=== PATIENT | female | born 1985 | race Caucasian/White ===

== ENCOUNTER → 2016-12-22 | Outpatient (CLI) | payer OTHER, BC ==
[~2016-12-22] MED LIST: LORA10TA PO; PREN1TAB30 PO
[2016-12-22 09:39] LABS: AUTOMATED NEUTROPHIL # 2.7 TH/MM3 (1.8-7.7); BASOPHIL # 0.1 TH/MM3 (0-0.2); BASOPHIL % 1.3 % (0.0-2.0); EOSINOPHIL # 0.1 TH/MM3 (0-0.4); EOSINOPHIL % 1.9 % (0.0-4.0); HEMATOCRIT 34.6 % (35.0-46.0); HEMO FLAGS DIFF FINAL; LYMPH % 37.4 % (9.0-44.0); LYMPHOCYTE # 1.8 TH/MM3 (1.0-4.8); MEAN CELL VOLUME 87.2 FL (80.0-100.0); MEAN CORPUSCULAR HEMOGLOBIN 31.2 PG (27.0-34.0); MEAN CORPUSCULAR HGB CONC 35.7 % (32.0-36.0); MONO % 4.7 % (0.0-8.0); NEUT % 54.7 % (16.0-70.0); PLATELET COUNT 222 TH/MM3 (150-450); RED BLOOD COUNT 3.97 MIL/MM3 (4.00-5.30); RED CELL DISTRIBUTION WIDTH 12.9 % (11.6-17.2); WHITE BLOOD COUNT 4.9 TH/MM3 (4.0-11.0)
[2016-12-22 10:16] LABS: RUBELLA IGG ANTIBODY 72.6 IU/mL (10.0-500.0); RUBELLA STATUS IMMUNE (IMMUNE)
[2016-12-22 15:59] LABS: RAPID PLASMA REAGIN SCREEN NON-REACTIVE (NON-REACTVE)
[2016-12-24 16:39] LABS: CALCULATED AGE AT EDD 31 years (()); GA USED IN RISK ESTIMATE Scan estimate (()); MATERNAL RACE BLACK non-Black (()); MATERNAL WEIGHT (LBS) 162 lbs (())
== END ==
LOC: CLAB 09:07
PROVIDERS: ATTEND Obstetrics & Gynecology
DX: Z34.82 Encounter for supervision of other normal pregnancy, second trimester (principal); Z11.3 Encounter for screening for infections with a predominantly sexual mode of transmission
CPT/HCPCS: 36415; 81511; 85025; 86592; 86703; 86762; 86850; 86900; 86901; 87086; 87340

== ENCOUNTER → 2017-01-06 | Outpatient (CLI) | payer OTHER, BC | LOC: HPND 11:19 | PROVIDERS: ATTEND Obstetrics & Gynecology | DX: O35.1XX0 Maternal care for (suspected) chromosomal abnormality in fetus, not applicable or unspecified (principal); Z3A.00 Weeks of gestation of pregnancy not specified | CPT/HCPCS: 76811 ==

== ENCOUNTER → 2017-02-03 | Outpatient (CLI) | payer OTHER, BC | LOC: HPND 08:59 | PROVIDERS: ATTEND Obstetrics & Gynecology | DX: O28.0 Abnormal hematological finding on antenatal screening of mother (principal); Z3A.22 22 weeks gestation of pregnancy | CPT/HCPCS: 76816; 76825; 76827; 93325 ==

== ENCOUNTER → 2017-03-03 | Outpatient (CLI) | payer OTHER, BC | LOC: HPND 09:40 | PROVIDERS: ATTEND Obstetrics & Gynecology | DX: O28.0 Abnormal hematological finding on antenatal screening of mother (principal); Z3A.25 25 weeks gestation of pregnancy | CPT/HCPCS: 76816 ==

== ENCOUNTER → 2017-03-18 | Outpatient (CLI) | payer OTHER, BC ==
[2017-03-18 11:07] LABS: HEMATOCRIT 33.9 % (35.0-46.0); REVIEW FLAG FINAL
== END ==
LOC: CLAB 09:48
PROVIDERS: ATTEND Obstetrics & Gynecology
DX: Z34.82 Encounter for supervision of other normal pregnancy, second trimester (principal)
CPT/HCPCS: 36415; 82951; 85014; 85018

== ENCOUNTER 2017-06-11 19:44 | Inpatient (IN) | payer OTHER, BC ==
[~2017-06-11] VITALS: Ht 165.1 cm; Wt 92.0 kg
[2017-06-11] MEDS ORDERED: LACTATED RINGER'S 1000 ML INJ 1,000 ML IV PRN (20:50)
[2017-06-11] MEDS ORDERED: OXYTOCIN 30 UNITS-500ML PREMIX 500 ML IV SCH (21:00)
[2017-06-11] MEDS ORDERED: MINERAL OIL 10 ML VIAL TOPICAL PRN (21:00)
[2017-06-11] MEDS ORDERED: LIDOCAINE HCL 1% 50 ML VIAL INFIL PRN (21:00)
[2017-06-11] MEDS ORDERED: LIDOCAINE HCL 1% 50 ML VIAL I-DERMAL PRN (21:00)
[2017-06-11] MEDS ORDERED: OXYTOCIN 30 UNITS-500ML PREMIX 500 ML IV ONE (21:00)
[2017-06-11] MEDS ORDERED: CITRIC ACID-SODIUM CITRATE LIQ 30 ML UDC PO SCH (21:00)
[2017-06-11] MEDS ORDERED: SODIUM CHLORID 0.9% 500 ML INJ 500 ML IV PRN (21:00)
[2017-06-11] MEDS ORDERED: PENICILLIN G POTASSIUM INJ 5,000,000 UNITS in SODIUM CHLORIDE 0.9% INJ 100 ML IV ONE (21:00)
--- NOTE | 2017-06-11 21:07 | HHI.HP ---
HPI Chief Complaint induction 40 1/7 weeks and YISSEL 06/10 Date Seen: Jun 11, 2017 Time Seen: 20:45 Travel History International Travel<30 Days: No Contact w/Intl Traveler<30Days: No Known Affected Area: No History of Present Illness HPI patient for induction Weeks Gestation: 40 Para: 1 : 3 Last Menstrual Period: Jun 11, 2017 History Past Medical History Medical History: Denies Significant Hx Obstetric History Obstetric History x1 Past Surgical History Narrative Surgical D&C in 2016 and breast augment Family History Family History: Negative Social History Alcohol Use: No Tobacco Use: No Substance Abuse: No Allergies-Medications (Allergen,Severity, Reaction): Coded Allergies: Sulfa (Sulfonamide Antibiotics) (Unverified Allergy, Unknown, 04/29/17) UNKNOWN REACTION Home Meds Reported Medications Loratadine (Claritin 10 Mg Tab) 10 Mg Tab, 10 MG PO DAILY Y for SNEEZING, TAB 03/04/16 Vit W/ Ferrous Fumara ( Vitamin 27-0.8 mg) 1 Tab Tab, PO DAILY 03/04/16 Review of Systems Except as stated in HPI: all other systems reviewed are Neg Physical Exam Narrative GENERAL: Well-nourished, well-developed patient. SKIN: Warm and dry. HEAD: Normocephalic and atraumatic. EYES: No scleral icterus. No injection or drainage. ENT: No nasal drainage noted. Mucous membranes pink. Airway patent. NECK: Supple, trachea midline. No JVD. CARDIOVASCULAR: Regular rate and rhythm without murmurs, gallops, or rubs. RESPIRATORY: Breath sounds equal bilaterally. No accessory muscle use. BREASTS: Bilateral exam showed no masses , no retractions, no nipple discharge. ABDOMEN/GI: Abdomen soft, non-tender, bowel sounds present, no rebound, no guarding Gravid to [-] weeks size Fundal Height: [-] GENITOURINARY: External Genitalia: intact and normal in appearance BUS glands: [-] Cervix: [-] Dilatation: 2 cm Effacement: 80 Station: [-] Presentation: VTX Membranes: [intact Uterine Contractions: [-] FHT's: Category: 1 Baseline: [-] Reactive: [-] Variability: [-] Decels: [-] EXTREMITIES: No cyanosis or edema. BACK: Nontender without obvious deformity. No CVA tenderness. NEUROLOGICAL: Awake and alert. Motor and sensory grossly within normal limits. Five out of 5 muscle strength in all muscle groups. Normal speech. Caprini VTE Risk Assessment Caprini VTE Risk Assessment: No/Low Risk (score <= 1) Caprini Risk Assessment Model Point Value = 1 Point Value = 2 Point Value = 3 Point Value = 5 Age 41-60 Minor surgery BMI > 25 kg/m2 Swollen legs Varicose veins or History of unexplained or recurrent spontaneous Oral contraceptives or hormone replacement Sepsis (< 1 month) Serious lung disease, including pneumonia (< 1 month) Abnormal pulmonary function Acute myocardial infarction Congestive heart failure (< 1 month) History of inflammatory bowel disease Medical patient at bed rest Age 61-74 Arthroscopic surgery Major open surgery (> 45 min) Laparoscopic surgery (> 45 min) Malignancy Confined to bed (> 72 hours) Immobilizing plaster cast Central venous access Age >= 75 History of VTE Family history of VTE Factor V Leiden Prothrombin [id number] Lupus anticoagulant Anticardiolipin antibodies Elevated serum homocysteine Heparin-induced thrombocytopenia Other congenital or acquired thrombophilia Stroke (< 1 month) Elective arthroplasty Hip, pelvis, or leg fracture Acute spinal cord injury (< 1 month) Prophylaxis Regimen Total Risk Factor Score Risk Level Prophylaxis Regimen 0-1 Low Early ambulation 2 Moderate Order ONE of the following: *Sequential Compression Device (SCD) *Heparin 5000 units SQ BID 3-4 Higher Order ONE of the following medications: *Heparin 5000 units SQ TID *Enoxaparin/Lovenox 40 mg SQ daily (WT < 150 kg, CrCl > 30 mL/min) *Enoxaparin/Lovenox 30 mg SQ daily (WT < 150 kg, CrCl > 10-29 mL/min) *Enoxaparin/Lovenox 30 mg SQ BID (WT < 150 kg, CrCl > 30 mL/min) AND/OR *Sequential Compression Device (SCD) 5 or more Highest Order ONE of the following medications: *Heparin 5000 units SQ TID (Preferred with Epidurals) *Enoxaparin/Lovenox 40 mg SQ daily (WT < 150 kg, CrCl > 30 mL/min) *Enoxaparin/Lovenox 30 mg SQ daily (WT < 150 kg, CrCl > 10-29 mL/min) *Enoxaparin/Lovenox 30 mg SQ BID (WT < 150 kg, CrCl > 30 mL/min) AND *Sequential Compression Device (SCD) Data Data Vital Signs Reviewed: Yes Orders Orders Admit To Inpatient (06/11/17 ) Code Status (06/11/17 20:50) Vital Signs (Adult) .Per protocol (06/11/17 20:50) Heart (06/11/17 20:50) Amnioinfusion (06/11/17 20:50) Urinary Catheter Management .ONCE (06/11/17 20:50) Diet Liquid (06/12/17 Breakfast) Lactated Ringer's 1000 Ml Inj (Lr 1000 M (06/11/17 20:50) Lactated Ringer's 1000 Ml Inj (Lr 1000 M (06/11/17 20:50) Sodium Chlorid 0.9% 500 Ml Inj (Ns 500 M (06/11/17 21:00) Sodium Chlor 0.9% 1000 Ml Inj (Ns 1000 M (06/11/17 21:10) Lidocaine 1% Inj (50 Ml) (Xylocaine 1% I (06/11/17 21:00) Citric Acid-Sodium Citrate Liq (Bicitra (06/11/17 21:00) Fentanyl Inj (Fentanyl Inj) (06/11/17 21:00) Fentanyl Inj (Fentanyl Inj) (06/11/17 21:00) Penicillin G Potassium Inj (Pfizerpen-G (06/11/17 21:00) Penicillin G Potassium Inj (Pfizerpen-G (06/12/17 01:00) Complete Blood Count With Diff (06/11/17 20:50) Hold Clot (06/11/17 20:50) Abo/Rh Blood Type (06/11/17 20:50) Urinalysis - C+S If Indicated (06/11/17 20:50) Resp Oxygen Non Rebreathe Mask (06/11/17 ) ^ Epidural / Intrathecal Infus (06/11/17 20:50) Oxytocin 30 Units-500ml Premix (Pitocin (06/11/17 21:00) Lidocaine 1% Inj (50 Ml) (Xylocaine 1% I (06/11/17 21:00) Light Mineral Oil (Muri-Lube Oil) (06/11/17 21:00) Specimen To Be Collected PRN (06/11/17 20:50) ^ Non Stress Test (06/11/17 20:55) Response To Medication .Post New Med Administration, Reaction (06/11/17 20:55) ^ Discontinue Medication (06/11/17 20:55) Oxytocin 30 Units-500ml Premix (Pitocin (06/11/17 21:00) Group B Strep: Positive Assessment/Plan Problem List: (1) 40 weeks gestation of ICD Codes: Z3A.40 - 40 weeks gestation of Assessment and Plan induction Caleb Lopez MD Jun 11, 2017 21:07
[2017-06-11] MEDS ORDERED: SODIUM CHLOR 0.9% 1000 ML INJ 1,000 ML IV PRN (21:10)
[2017-06-11] MEDS: LACTATED RINGER'S 1000 ML INJ 1,000 ML IV SCH (21:31)
[2017-06-11 21:38] LABS: BACTERIA, URINE RARE /hpf; BLOOD, URINE NEG (NEG); COMMENT (UR) CULT NOT INDICATED; CULTURE IF INDICATED CULT NOT INDICATED; GLUCOSE,URINE NEG (NEG); KETONE, URINE NEG (NEG); MUCUS URINE FEW /lpf (OCC); NITRITE,URINE NEG (NEG); PH, URINE 6.5 (5.0-8.5); SQUAMOUS EPITHELIAL CELL URINE 1 /hpf (0-5); URINE COLOR LIGHT-YELLOW (YELLW/STRAW)
[2017-06-11 21:41] LABS: AUTOMATED NEUTROPHIL # 7.9 TH/MM3 (1.8-7.7); BASOPHIL # 0.1 TH/MM3 (0-0.2); BASOPHIL % 0.7 % (0.0-2.0); EOSINOPHIL # 0.2 TH/MM3 (0-0.4); EOSINOPHIL % 1.8 % (0.0-4.0); HEMATOCRIT 34.4 % (35.0-46.0); HEMO FLAGS DIFF FINAL; LYMPH % 21.7 % (9.0-44.0); LYMPHOCYTE # 2.4 TH/MM3 (1.0-4.8); MEAN CELL VOLUME 88.1 FL (80.0-100.0); MEAN CORPUSCULAR HEMOGLOBIN 29.2 PG (27.0-34.0); MEAN CORPUSCULAR HGB CONC 33.1 % (32.0-36.0); NEUT % 70.8 % (16.0-70.0); PLATELET COUNT 309 TH/MM3 (150-450); RED CELL DISTRIBUTION WIDTH 12.7 % (11.6-17.2); WHITE BLOOD COUNT 11.2 TH/MM3 (4.0-11.0)
[2017-06-11 23:15] VITALS: BP 120/74; PULSE 68; RESP 16; TEMP 97.6
[2017-06-12] VITALS (36 sets, daily range): BP systolic 81–141; BP diastolic 55–90; PULSE 58–84; RESP 16–18; TEMP 97.5–98.3
[2017-06-12] MEDS ORDERED: fentaNYL 2MCG-BUPIV 0.125% INJ 100 ML ONE (01:44)
[2017-06-12] MEDS: LACTATED RINGER'S 1000 ML INJ 1,000 ML IV SCH ×2 (01:55→05:38)
[2017-06-12] MEDS: PENICILLIN G POTASSIUM INJ 2,500,000 UNITS in SODIUM CHLORIDE 0.9% INJ 100 ML IV SCH ×2 (01:55→05:38)
[2017-06-12] MEDS ORDERED: ONDANSETRON HCL 4 MG/2 ML VIAL ONE (02:20)
[2017-06-12] MEDS ORDERED: ePHEDrine/NS 25 MG/5 ML SYR ONE (02:21)
[2017-06-12] MEDS ORDERED: DO NOT ADMINISTER ANTICOAGULANTS PRN (02:30)
[2017-06-12] MEDS ORDERED: ePHEDrine/NS 25 MG/5 ML SYR IV PUSH PRN (02:30)
[2017-06-12] MEDS ORDERED: fentaNYL 2MCG-BUPIV 0.125% 100 ML EPIDURAL SCH (02:30)
[2017-06-12] MEDS ORDERED: NO SYSTEM NARCOTICS PRN (02:30)
[2017-06-12] MEDS ORDERED: BENZOCAINE 20% TOPICAL SPRAY 60 ML CAN TOPICAL PRN (07:15)
[2017-06-12] MEDS ORDERED: WITCH HAZEL 50%/GLYCERIN 12.5% 40 PAD JAR TOPICAL PRN (07:15)
[2017-06-12] MEDS ORDERED: IBUPROFEN 600 MG TAB PO PRN (07:15)
[2017-06-12] MEDS ORDERED: ACETAMINOPHEN 325 MG TAB PO PRN (07:15)
[2017-06-12] MEDS ORDERED: DOCUSATE SODIUM 50 MG/SENNA 8.6 MG TAB PO PRN (07:15)
[2017-06-12] MEDS ORDERED: oxyCODONE/ACETAMINOPHEN 5 MG/325 MG TAB PO PRN ×2 (07:15)
[2017-06-12] MEDS ORDERED: ZOLPIDEM TARTRATE 5 MG TAB PO PRN (07:15)
[2017-06-12] MEDS ORDERED: ONDANSETRON ODT 4 MG TAB PO PRN (07:15)
[2017-06-12] MEDS ORDERED: SODIUM CHLORIDE 0.9% FLUSH 10 ML FLUSH IV FLUSH PRN (07:15)
[2017-06-12] MEDS ORDERED: OXYTOCIN 30 UNITS-500ML PREMIX 500 ML IV SCH (07:15)
[2017-06-12] MEDS ORDERED: ALUMINUM/MAGNESIUM/SIMETH 30 ML CUP PO PRN (07:15)
--- NOTE | 2017-06-12 07:23 | PD.OB.DELI ---
Weeks gestation: 40 Gest age assessed date: Jun 11, 2017 Gest age assessed time: 22:30 Pt started active labor?: Yes Active labor start date: Jun 12, 2017 Active labor start time: 00:01 Medical induction of labor?: No Artificial rupture of membrane: Yes Artificial ROM date: Jun 11, 2017 Artifical ROM time: 22:50 Anesthesia: Epidural Episiotomy: Right mediolateral Vaginal Delivery: Normal, Spontaneous Presentation: Occiput anterior Nuchal Cord: None Delayed cord clamping (45 sec): Yes : Male Delivery date: Jun 12, 2017 Delivery time: 06:46 One Minute : 8 Five Minute : 9 Weight: 8# 11oz Placenta: Spontaneous delivery, Intact, 3 vessel cord Laceration: Episiotomy, 2 deg Repair: Chromic running Estimated blood loss: 300 Caleb Lopez MD Jun 12, 2017 07:23
--- NOTE | 2017-06-12 07:25 | HHI.DCPOC ---
Discharge Care Plan Diagnosis: (1) Spontaneous vaginal delivery Report Symptoms to Your Doctor -Temperature above 100.5 degrees -Redness, of incision or excessive or foul smelling drainage -Unusual pain or calf pain -Increased vaginal bleeding -Painful or difficulty urinating -Feelings of extreme sadness or anxiety after 2 weeks Goals to Promote Your Health * To prevent worsening of your condition and complications * To maintain your health at the optimal level Directions to Meet Your Goals Take your medications as prescribed Follow your dietary instruction Follow activity as directed Ensure plenty of rest for recovery Drink fluids for hydration Keep your appointments as scheduled Take your immunizations and boosters as scheduled If your symptoms worsen call your PCP, if no PCP go to Urgent Care Center or Emergency Room Smoking is Dangerous to Your Health. Avoid second hand smoke Call the 24-hour crisis hotline for domestic abuse at Caleb Lopez MD Jun 12, 2017 07:25
[2017-06-12] MEDS ORDERED: SODIUM CHLORIDE 0.9% FLUSH 10 ML FLUSH IV FLUSH SCH (09:00)
[2017-06-12] MEDS ORDERED: DIPHTH/TETANUS/ACEL PERTUSSIS (BOOSTER) 0.5 ML VIAL/PFS IM ONE (16:00)
[2017-06-12] MEDS ORDERED: MEASLES, MUMPS, RUBELLA VACCINE 0.5 ML VIAL SQ ONE (16:00)
[2017-06-13 05:47] VITALS: BP 120/79; PULSE 70; RESP 20; TEMP 98.7
--- NOTE | 2017-06-13 07:58 | HHI.OB ---
Subjective Post Day: 1 Remarks doing well and ready for DC Objective Vitals/I&O Vital Signs Date Time Temp Pulse Resp B/P (MAP) Pulse Ox O2 Delivery O2 Flow Rate FiO2 06/13/17 05:47 98.7 70 20 120/79 06/12/17 20:00 98.3 06/12/17 20:00 70 18 120/79 (93) 06/12/17 11:15 98.0 65 16 118/64 (82) 06/12/17 08:41 18 06/12/17 08:36 84 117/68 (84) 06/12/17 08:19 65 115/64 (81) 06/12/17 08:15 18 06/12/17 08:01 67 111/62 (78) 06/12/17 08:00 97.5 18 Objective Remarks GENERAL: Well-nourished, well-developed patient. ABDOMEN/GI: Abdomen soft, non-tender. Fundus: Firm, non-tender at umbilicus. GENITOURINARY: Light to moderate bleeding. EXTREMITIES: No cyanosis or edema, non-tender, without signs of DVT. Medications and IVs Current Medications Medications (Trade) Dose Ordered Sig/Brittany Route Start Time Stop Time Status Last Admin Lactated Ringer's 1,000 ml @ 125 mls/hr Q8H IV 06/11/17 20:50 06/12/17 05:38 Lactated Ringer's 1,000 ml @ 3,000 mls/hr Q20M PRN IV 06/11/17 20:50 Sodium Chloride 500 ml @ 1,000 mls/hr ONCE PRN IV 06/11/17 21:00 07/01/17 20:59 Sodium Chloride 1,000 ml @ 100 mls/hr Q10H PRN IV 06/11/17 21:10 (Xylocaine 1% Inj (50 ml)) 0.1 ml UNSCH X1 PRN I-DERMAL 06/11/17 21:00 06/14/17 20:59 (Bicitra Liq) 30 ml SUSPENDER CUTTER PO 06/11/17 21:00 06/15/17 20:59 (fentaNYL INJ) 50 mcg Q1H PRN IV PUSH 06/11/17 21:00 (fentaNYL INJ) 100 mcg Q1H PRN IV PUSH 06/11/17 21:00 Penicillin G Potassium [id number] units/Sodium Chloride 100 ml @ 200 mls/hr Q4H IV 06/12/17 01:00 06/12/17 05:38 (Xylocaine 1% Inj (50 ml)) 10 ml UNSCH X1 PRN INFIL 06/11/17 21:00 06/13/17 20:59 (Muri-Lube Oil) 10 ml UNSCH PRN TOPICAL 06/11/17 21:00 Oxytocin 500 ml @ 0 mls/hr TITRATE IV 06/11/17 21:00 06/12/17 02:58 Fentanyl/ Bupivacaine HCl 100 ml @ 12 mls/hr TITRATE EPIDURAL 06/12/17 02:30 (NS Flush) 2 ml BID IV FLUSH 06/12/17 09:00 (NS Flush) 2 ml UNSCH PRN IV FLUSH 06/12/17 07:15 (Tylenol) 650 mg Q4H PRN PO 06/12/17 07:15 (Motrin) 600 mg Q6H PRN PO 06/12/17 07:15 06/13/17 05:52 (Percocet 5-325 Mg) 1 tab Q4H PRN PO 06/12/17 07:15 (Percocet 5-325 Mg) 2 tab Q4H PRN PO 06/12/17 07:15 (Americaine 20% Top Spr) 1 spray Q4H PRN TOPICAL 06/12/17 07:15 06/13/17 05:51 (Tucks Pads) 1 applic QID PRN TOPICAL 06/12/17 07:15 06/13/17 05:51 (Sophie-Colace) 2 tab Q12H PRN PO 06/12/17 07:15 06/13/17 05:51 (Ambien) 5 mg HS PRN PO 06/12/17 07:15 (Mag-Al Plus Susp Liq) 15 ml Q8H PRN PO 06/12/17 07:15 (Zofran Odt) 4 mg Q6H PRN PO 06/12/17 07:15 (Flu (Quadrivalent) Vaccine Inj) 0.5 ml ONCE ONCE IM 06/13/17 10:00 06/13/17 10:01 Assessment/Plan Problem List: (1) 40 weeks gestation of ICD Codes: Z3A.40 - 40 weeks gestation of (2) Spontaneous vaginal delivery ICD Codes: O80 - Encounter for full-term uncomplicated delivery Status: Acute Assessment and Plan doing well Caleb Lopez MD Jun 13, 2017 07:58
[2017-06-13] MEDS ORDERED: OXYC1TAB63 PO (08:01)
[2017-06-13 08:20] VITALS: BP 119/81; PULSE 61; RESP 17; TEMP 98.2
[2017-06-13] MEDS ORDERED: INFLUENZA VIRUS VACCINE (QUADRIVALENT) 0.5 ML SYR IM ONE (10:00)
== END 2017-06-13 15:23 | disposition home or self-care (01) | DRG 775 ==
LOC: H2EB 19:44 → H1EA 06-12 08:58
PROVIDERS: ADMIT Obstetrics & Gynecology; ATTEND Obstetrics & Gynecology
PROC: 10E0XZZ Delivery of Products of Conception, External Approach (ICD-10-PCS; principal; 2017-06-11)
PROC: 0KQM0ZZ Repair Perineum Muscle, Open Approach (ICD-10-PCS; 2017-06-11)
PROC: 10907ZC Drainage of Amniotic Fluid, Therapeutic from Products of Conception, Via Natural or Artificial Opening (ICD-10-PCS; 2017-06-11)
PROC: 0W8NXZZ Division of Female Perineum, External Approach (ICD-10-PCS; 2017-06-11)
DX: O70.1 Second degree perineal laceration during delivery (principal); O26.893 Other specified pregnancy related conditions, third trimester; Z23 Encounter for immunization; Z37.0 Single live birth; Z3A.40 40 weeks gestation of pregnancy
CPT/HCPCS: 59025; 81001; 85025; 85461; 86850; 86900; 86901; 90384; 90686; 90715; J2405; J2540; J2590; J2790; J7120; Q2038

== ENCOUNTER 2018-03-07 16:20 | Emergency (ER) | payer OTHER, BC ==
[~2018-03-07] VITALS: Ht 152.4 cm; Wt 70.0 kg
[~2018-03-07 16:20] MED LIST changes: +AK-T0.3S EACH EYE; -LORA10TA PO; +OXYC1TAB63 PO; -PREN1TAB30 PO
[2018-03-07 16:24] VITALS: BP 126/76; PULSE 83; RESP 18; TEMP 98.2; O2SAT 99
[2018-03-07] MEDS ORDERED: KETOROLAC TROMETHAMINE 30 MG/ML (IVP) VIAL IV PUSH ONE (16:45)
[2018-03-07] MEDS ORDERED: PROCHLORPERAZINE INJ 10 MG/2 ML VIAL IV PUSH ONE (16:45)
[2018-03-07] MEDS ORDERED: diphenhydrAMINE HCL 50 MG/ML VIAL IV PUSH ONE (16:45)
[2018-03-07] MEDS ORDERED: SODIUM CHLOR 0.9% 1000 ML INJ 1,000 ML IV ONE (16:45)
--- NOTE | 2018-03-07 17:14 | PD ---
HPI Chief Complaint: Headache Time Seen by Provider: 16:38 Travel History International Travel<30 days: No Contact w/Intl Traveler<30days: No Traveled to known affect area: No History of Present Illness HPI Patient is a 32 year old female who comes in complaining of severe headache. She says that for the past few weeks she has had on and off headaches that usually improved after sleeping and Ibuprofen. However, for the past two days she has had severe pain. She says it started last night and continued today. She has tried Ibuprofen, Zofran and Benadryl. She tried a Tramadol as well without relief. She reports vomiting once and is not sure if she vomited the medications or not. She says she has had chills at home, but does not think she has had a fever. She complains of neck stiffness, but says she often has pain to her neck. 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 She does not typically get headaches like this. She says a few days ago she stood up into the mantle and hit her head hard, but the headaches started prior to this. Severity is moderate. PFSH Past Medical History Cancer: No Cardiovascular Problems: No Diabetes: No Endocrine: No Gastrointestinal Disorders: Yes (IRRITABLE BOWEL) Genitourinary: No Hepatitis: No Hiatal Hernia: No Hypertension: No Immune Disorder: No Medical other: No Musculoskeletal: No Neurologic: No Psychiatric: No Reproductive: Yes (vaginal bleeding) Respiratory: No ?: Not LMP: 03/01/2018 : 1 Para: 0 Miscarriage: 0 : 0 Past Surgical History Abdominal Surgery: No AICD: No Body Medical Devices: saline breast implants Cardiac Surgery: No Ear Surgery: No Endocrine Surgery: No Eye Surgery: No Genitourinary Surgery: No Gynecologic Surgery: No Joint Replacement: No Neurologic Surgery: No Oral Surgery: Yes (TONSILLECTOMY) Pacemaker: No Thoracic Surgery: Yes (breast augmentation) Other Surgery: Yes Social History Alcohol Use: No Tobacco Use: No Substance Use: No Allergies-Medications (Allergen,Severity, Reaction): Coded Allergies: sulfamethoxazole (Verified Allergy, Severe, Hives, 06/11/17) trimethoprim (Verified Allergy, Severe, Hives, 06/11/17) Sulfa (Sulfonamide Antibiotics) (Unverified Allergy, Unknown, 04/29/17) UNKNOWN REACTION Reported Meds & Prescriptions Reported Meds & Active Scripts Active Tobramycin Opth Drops 0.3 % Soln 1 Drop EACH EYE Q4H Oxycodone-Acetaminophen 5-325 mg Tab 2 Tab PO Q4H PRN 7 Days Review of Systems Except as stated in HPI: all other systems reviewed are Neg Eyes: No: Blurred Vision HENT: Positive: Headaches, Neck Pain Cardiovascular: No: Chest Pain or Discomfort Respiratory: No: Shortness of Breath Gastrointestinal: Positive: Nausea, Vomiting, No: Abdominal Pain Musculoskeletal: No: Myalgias Skin: No Rash, No Change in Pigmentation Neurologic: No: Dizziness, Syncope Physical Exam Narrative GENERAL: Awake and alert, in no acute distress. SKIN: Focused skin assessment warm/dry. No wounds or signs of infection. HEAD: Atraumatic. Normocephalic. EYES: Pupils equal and round and reactive. No scleral icterus. EOMI. ENT: Mucous membranes pink and moist. NECK: Trachea midline. No JVD. Tender to palpation of the left trapezius muscle. No meningeal signs. CARDIOVASCULAR: Regular rate and rhythm. No murmur appreciated. RESPIRATORY: No accessory muscle use. Clear to auscultation. Breath sounds equal bilaterally. GASTROINTESTINAL: Abdomen soft, non-tender, nondistended. MUSCULOSKELETAL: No obvious deformities. No clubbing. No cyanosis. No edema. NEUROLOGICAL: Awake and alert. No obvious cranial nerve deficits. Motor grossly within normal limits. Normal speech. PSYCHIATRIC: Appropriate mood and affect; insight and judgment normal. Data Data Last Documented VS Vital Signs Date Time Temp Pulse Resp B/P (MAP) Pulse Ox O2 Delivery O2 Flow Rate FiO2 03/07/18 16:24 98.2 83 18 126/76 (93) 99 Orders Orders Iv Access Insert/Monitor (03/07/18 16:41) Complete Blood Count With Diff (03/07/18 16:41) Comprehensive Metabolic Panel (03/07/18 16:41) Act Partial Throm Time (Ptt) (03/07/18 16:41) Prothrombin Time / Inr (Pt) (03/07/18 16:41) Ct Brain W/O Iv Contrast(Rout) (03/07/18 ) Sodium Chlor 0.9% 1000 Ml Inj (Ns 1000 M (03/07/18 16:45) Prochlorperazine Inj (Compazine Inj) (03/07/18 16:45) Diphenhydramine Inj (Benadryl Inj) (03/07/18 16:45) Ketorolac Inj (Toradol Inj) (03/07/18 16:45) MDM Medical Decision Making Medical Screen Exam Complete: Yes Emergency Medical Condition: Yes Medical Record Reviewed: Yes Differential Diagnosis migraine vs tension headache vs dehydration vs ICH Narrative Course Patient is a 32 year old female who comes in complaining of severe headache. Exam shows tenderness to the trapezius muscle, no neurologic abnormalities. IV established, labs sent. Given IVF, Compazine, Benadryl, Toradol. Signed out to Dr. Gonzales to follow up labs and disposition the patient. Narda Chrsitine MD Mar 07, 2018 17:14
[2018-03-07 17:20] LABS: AUTOMATED NEUTROPHIL # 4.8 TH/MM3 (1.8-7.7); BASOPHIL % 0.6 % (0.0-2.0); EOSINOPHIL % 0.5 % (0.0-4.0); HEMATOCRIT 38.3 % (35.0-46.0); HEMOGLOBIN 12.9 GM/DL (11.6-15.3); LYMPHOCYTE # 0.6 TH/MM3 (1.0-4.8); MEAN CELL VOLUME 87.9 FL (80.0-100.0); MEAN CORPUSCULAR HEMOGLOBIN 29.5 PG (27.0-34.0); MEAN CORPUSCULAR HGB CONC 33.6 % (32.0-36.0); MEAN PLATELET VOLUME 7.9 FL (7.0-11.0); MONO % 6.8 % (0.0-8.0); MONOCYTE # 0.4 TH/MM3 (0-0.9); NEUT % 82.1 % (16.0-70.0); PLATELET COUNT 237 TH/MM3 (150-450); RED BLOOD COUNT 4.36 MIL/MM3 (4.00-5.30); RED CELL DISTRIBUTION WIDTH 12.4 % (11.6-17.2); WHITE BLOOD COUNT 5.9 TH/MM3 (4.0-11.0)
[2018-03-07 17:31] LABS: PROTHROMBIN TIME - PATIENT 10.6 SEC (9.8-11.6)
[2018-03-07 17:37] LABS: AST (GOT) 16 U/L (15-37); BICARBONATE 25.4 MEQ/L (21.0-32.0); BLOOD UREA NITROGEN 14 MG/DL (7-18); CALCIUM 8.6 MG/DL (8.5-10.1); CHLORIDE 105 MEQ/L (98-107); CREATININE 0.65 MG/DL (0.50-1.00); GLOMERULAR FILTRATION RATE 106 ML/MIN (>89); GLUCOSE,RANDOM 94 MG/DL (74-106); SODIUM (NA) 139 MEQ/L (136-145)
[2018-03-07 17:38] LABS: ALT (GPT) 21 U/L (10-53)
[2018-03-07 17:41] LABS: ALKALINE PHOSPHATASE 89 U/L (45-117); TOTAL BILIRUBIN ADULT 0.2 MG/DL (0.2-1.0); TOTAL PROTEIN 7.3 GM/DL (6.4-8.2)
[2018-03-07 17:43] VITALS: BP 113/66; PULSE 72; RESP 16; O2SAT 96
--- NOTE | 2018-03-07 17:46 | RADRPT ---
EXAM DATE: 03/07/2018 5:20 PM EDT AGE/SEX: 32 years / Female INDICATIONS: Cephalgia with nausea and vomiting today. CLINICAL DATA: This is the patient's initial encounter. Patient reports that signs and symptoms have been present for 1 day and indicates a pain score of 8/10. MEDICAL/SURGICAL HISTORY: None. None. RADIATION DOSE: 56.35 CTDI (mGy) COMPARISON: No prior exams available for comparison. TECHNIQUE: CT of the head without contrast. Using automated exposure control and adjustment of the mA and/or kV according to patient size, radiation dose was kept as low as reasonably achievable to ob tain optimal diagnostic quality images. DICOM format image data is available electronically for revi ew and comparison. FINDINGS: Cerebrum: The ventricles are normal for age. No evidence of midline shift, mass lesion, hemorrhage or acute infarction. No extraaxial fluid collections are seen. Posterior Fossa: The cerebellum and brainstem are intact. The 4th ventricle is midline. The cerebe llopontine angle is unremarkable. Extracranial: The visualized portion of the orbits is intact. Skull: The calvaria is intact. No evidence of skull fracture. CONCLUSION: 1. Negative CT Head non contrast. Electronically signed by: Leopoldo Nash MD 03/07/2018 5:44 PM EDT
[2018-03-07 17:50] VITALS: RESP 16
[2018-03-07] MEDS ORDERED: ZOFR4TAB3 SL (17:58)
[2018-03-07] MEDS ORDERED: ROBA750T PO (17:58)
[2018-03-07] MEDS ORDERED: BUTA1CAP PO (17:58)
--- NOTE | 2018-03-07 17:59 | PD ---
Physical Exam Narrative Patient was seen by ED physician and signed out to me. Data Data Last Documented VS Vital Signs Date Time Temp Pulse Resp B/P (MAP) Pulse Ox O2 Delivery O2 Flow Rate FiO2 03/07/18 17:43 72 16 113/66 (82) 96 Room Air 03/07/18 16:24 98.2 Orders Orders Iv Access Insert/Monitor (03/07/18 16:41) Complete Blood Count With Diff (03/07/18 16:41) Comprehensive Metabolic Panel (03/07/18 16:41) Act Partial Throm Time (Ptt) (03/07/18 16:41) Prothrombin Time / Inr (Pt) (03/07/18 16:41) Ct Brain W/O Iv Contrast(Rout) (03/07/18 ) Sodium Chlor 0.9% 1000 Ml Inj (Ns 1000 M (03/07/18 16:45) Prochlorperazine Inj (Compazine Inj) (03/07/18 16:45) Diphenhydramine Inj (Benadryl Inj) (03/07/18 16:45) Ketorolac Inj (Toradol Inj) (03/07/18 16:45) Labs Laboratory Tests Test 03/07/18 17:00 White Blood Count 5.9 TH/MM3 Red Blood Count 4.36 MIL/MM3 Hemoglobin 12.9 GM/DL Hematocrit 38.3 % Mean Corpuscular Volume 87.9 FL Mean Corpuscular Hemoglobin 29.5 PG Mean Corpuscular Hemoglobin Concent 33.6 % Red Cell Distribution Width 12.4 % Platelet Count 237 TH/MM3 Mean Platelet Volume 7.9 FL Neutrophils (%) (Auto) 82.1 % Lymphocytes (%) (Auto) 10.0 % Monocytes (%) (Auto) 6.8 % Eosinophils (%) (Auto) 0.5 % Basophils (%) (Auto) 0.6 % Neutrophils # (Auto) 4.8 TH/MM3 Lymphocytes # (Auto) 0.6 TH/MM3 Monocytes # (Auto) 0.4 TH/MM3 Eosinophils # (Auto) 0.0 TH/MM3 Basophils # (Auto) 0.0 TH/MM3 CBC Comment DIFF FINAL Differential Comment Prothrombin Time 10.6 SEC Prothromb Time International Ratio 1.0 RATIO Activated Partial Thromboplast Time 26.8 SEC Blood Urea Nitrogen 14 MG/DL Creatinine 0.65 MG/DL Random Glucose 94 MG/DL Total Protein 7.3 GM/DL Albumin 4.0 GM/DL Calcium Level 8.6 MG/DL Alkaline Phosphatase 89 U/L Aspartate Amino Transf (AST/SGOT) 16 U/L Alanine Aminotransferase (ALT/SGPT) 21 U/L Total Bilirubin 0.2 MG/DL Sodium Level 139 MEQ/L Potassium Level 3.7 MEQ/L Chloride Level 105 MEQ/L Carbon Dioxide Level 25.4 MEQ/L Anion Gap 9 MEQ/L Estimat Glomerular Filtration Rate 106 ML/MIN MDM Supervised Visit with JACKY: No Interpretation(s) Last Impressions Head CT 03/07/18 0000 Signed Impressions: CONCLUSION: 1. Negative CT Head non contrast. 1753 PM. CBC within normal limits. CMP within normal limits. Diagnosis Primary Impression: Cephalgia Qualified Codes: R51 - Headache Patient Instructions: General Instructions Additional Instruction: Take Fioricet as needed for headache. Follow-up with personal physician and neurologist. Return if worse. Off work today. Med/Other Pt SpecificInfo: Prescription(s) given Scripts Methocarbamol (Robaxin) 750 Mg Tab 750 MG PO QID for Muscle Spasm, #40 TAB 0 Refills Prov: Herve Gonzales MD 03/07/18 Ondansetron Odt (Zofran Odt) 4 Mg Tab 4 MG SL Q6HR Y for Nausea/Vomiting, #10 TAB 0 Refills Prov: Herve Gonzales MD 03/07/18 Qelinlfcln-Ijogmyazuygns-Xiykgvhj (Fioricet) 50-300-40 Mg Cap 1-2 CAP PO Q6H Y for HEADACHE, #30 CAP 0 Refills Prov: Herve Gonzales MD 03/07/18 Disposition: 01 DISCHARGE HOME Condition: Stable Herve Gonzales MD Mar 07, 2018 17:59
[2018-03-07 18:43] VITALS: BP 114/73
== END 2018-03-07 18:44 | disposition home or self-care (01) ==
LOC: NEPD 16:20
DX: R51 Headache (principal); R11.10 Vomiting, unspecified; R68.83 Chills (without fever); M43.6 Torticollis; M79.1 Myalgia; Z87.19 Personal history of other diseases of the digestive system
CPT/HCPCS: 70450; 80053; 85025; 85610; 85730; 96361; 96374; 96375; 99284; J0780; J1200; J1885; J7030